=== PATIENT | female | born 1980 | race Two or more races ===

== ENCOUNTER 2020-04-23 11:12 | Emergency (ER) | payer OTHER ==
[~2020-04-23] VITALS: Ht 165.1 cm; Wt 65.3 kg
[2020-04-23] MEDS ORDERED: ORPHENADRINE C100 MG PO (13:25)
[2020-04-23] MEDS ORDERED: KETO10TA2 PO (13:25)
[2020-04-23] MEDS ORDERED: ULTRAM50 MG PO (13:25)
== END 2020-04-23 13:34 ==
LOC: ER 11:12
DX: S92.511A Displaced fracture of proximal phalanx of right lesser toe(s), initial encounter for closed fracture (principal); X50.9XXA Other and unspecified overexertion or strenuous movements or postures, initial encounter; Y93.01 Activity, walking, marching and hiking; Y92.832 Beach as the place of occurrence of the external cause; Y99.8 Other external cause status